=== PATIENT | female | born 1965 | race Caucasian/White ===

== ENCOUNTER 2022-09-25 13:36 | Emergency (ER) | payer OTHER ==
[2022-09-25] MEDS ORDERED: INSULIN -REGULAR HUMAN 50 UNIT/0.5 ML ML ONE (14:36)
[2022-09-25] MEDS ORDERED: NA CHLORIDE 0.9% 1,000 ML ONE (14:37)
[2022-09-25 14:52] LABS: Absolute Lymphocytes (CBC) 1.4 K/uL (0.7-4.9); Hematocrit 39.7 % (36.0-45.0); Lymphocytes % 24.4 % (15.3-44.8); MCV 85.9 fL (80-100); MPV 8.2 fL (7.6-11.3); RBC Red Blood Cell Count 4.62 M/uL (3.86-4.86)
[2022-09-25 15:04] LABS: Potassium 4.2 mEq/L (3.5-5.1)
--- NOTE | 2022-09-25 15:31 | ER ---
Nurse's Notes [facility] Name: Rosa Ortez Age: 57 yrs Sex: Female : 1965 Arrival Date: 09/25/2022 Time: 13:36 Bed 16 Private MD: Diagnosis: Hyperglycemia, unspecified;Tachycardia, unspecified Presentation: 09/25 13:53 Chief complaint: Patient states: she has been having issues controlling her blood ap3 sugars since she moved and is waiting for her diabetic monitoring system. Coronavirus screen: At this time, the client does not indicate any symptoms associated with coronavirus-19. Ebola Screen: No symptoms or risks identified at this time. Initial Sepsis Screen: Does the patient meet any 2 criteria? No. Patient's initial sepsis screen is negative. Does the patient have a suspected source of infection? No. Patient's initial sepsis screen is negative. Risk Assessment: Do you want to hurt yourself or someone else? Patient reports no desire to harm self or others. Onset of symptoms is unknown. 13:53 Method Of Arrival: Ambulatory ap3 13:53 Acuity: HERLINDA 3 ap3 Triage Assessment: 13:55 General: Appears in no apparent distress. Behavior is cooperative, anxious. Pain: ap3 Denies pain. Neuro: Level of Consciousness is awake, alert, obeys commands, Oriented to person, place, time. Cardiovascular: Patient's skin is warm and dry. Respiratory: Airway is patent Respiratory effort is even, unlabored, Respiratory pattern is regular, symmetrical. GI: Reports nausea. Historical: - Allergies: 13:55 Clindamycin; ap3 - Home Meds: 13:54 insulin [Active]; ap3 - PMHx: 13:54 Diabetes mellitus; ap3 13:55 Seizure; PTSD; ap3 - Immunization history:: Client reports receiving the 2nd dose of the Covid vaccine. - Social history:: Smoking status: Patient reports the use of cigarette tobacco products, denies chronic smoking, but will smoke occasionally. Screenin:[address] [facility] ED Fall Risk Assessment (Adult) History of falling in the last 3 months, ap3 including since admission No falls in past 3 months (0 pts). Abuse screen: Denies threats or abuse. Nutritional screening: No deficits noted. Tuberculosis screening: No symptoms or risk factors identified. Assessment: 14:38 General: Appears in no apparent distress. comfortable, Behavior is calm, cooperative, ko1 appropriate for age. Pain: Denies pain. Neuro: No deficits noted. Cardiovascular: No deficits noted. Respiratory: No deficits noted. GI: No deficits noted. : No deficits noted. EENT: No deficits noted. Derm: No deficits noted. Musculoskeletal: No deficits noted. 16:05 Reassessment: Patients blood sugar reading 31 and 43, gave 2 orange juices, 2 packages ko1 of manju crackers with 2 peanut butter packets. Will recheck. 16:20 Reassessment: Patients blood sugar is 65, will continue to monitor closely. ko1 17:00 Reassessment: blood sugar 78, notified Dr Lal. Patient is ready for DC. ko1 Vital Signs: 13:53 BP 141 / 81; Pulse 117; Resp 19; Temp 98.2; Pulse Ox 100% ; ap3 14:38 BP 111 / 88; Pulse 102; Resp 18; Pulse Ox 99% ; ko1 15:53 BP 129 / 87; Pulse 98; Resp 18; Pulse Ox 99% ; ko1 16:55 BP 126 / 77; Pulse 89; Resp 18; Pulse Ox 99% ; ko1 ED Course: 13:43 Patient arrived in ED. im 13:44 Sin Lal DO is Attending Physician. ms3 13:54 Triage completed. ap3 13:56 Arm band placed on right wrist. ap3 14:25 Sunni Jerez, RN is Primary Nurse. ko1 14:33 BMP Sent. ko1 14:33 CBC with Diff Sent. ko1 14:36 Initial lab(s) drawn, by me, sent to lab. Inserted saline lock: 20 gauge in left tm3 antecubital area, using aseptic technique. 14:38 Patient has correct armband on for positive identification. Bed in low position. Call ko1 light in reach. Side rails up X 1. Provided Education on: medications. 15:31 Derrick Wallace DO is Referral Physician. ms3 15:53 No provider procedures requiring assistance completed. ko1 16:55 IV discontinued, intact, bleeding controlled, No redness/swelling at site. Pressure ko1 dressing applied. Administered Medications: 14:36 Drug: NS 0.9% IV 1000 ml Route: IV; Rate: 1000 ml; Site: left antecubital; ko1 16:00 Follow up: Response: No adverse reaction; IV Status: Completed infusion; IV Intake: ko1 1000ml 14:36 Drug: Insulin Regular Human Sub-Q 5 units {Co-Signature: [email or web address] (Vonda Lal RN).} Route: ko1 Sub-Q; Site: abdomen; 16:57 Follow up: Response: Blood sugar is lowered ko1 Medication: 15:53 VIS not applicable for this client. ko1 Intake: 16:00 IV: 1000ml; Total: 1000ml. ko1 Outcome: 15:31 Discharge ordered by ms3 17:01 Patient left the ED. ko1 Signatures: Arsenio Thomas tm3 Jodi Anderson RN RN ap3 Sin Lal DO DO ms3 Sunni Jerez RN RN ko1 Jazmine Angeles Lauren RN ld1
--- NOTE | 2022-09-25 15:31 | EDPHYS ---
Physician Documentation [facility] Name: Rosa Ortez Age: 57 yrs Sex: Female : 1965 Arrival Date: 09/25/2022 Time: 13:36 Bed 16 Private MD: ED Physician Sin Lal HPI: 09/25 15:32 This 57 yrs old Female presents to ER via Ambulatory with complaints of Diabetes. ms3 15:32 57-year-old female with past medical history of diabetes, seizures, PTSD presents for ms3 hyperglycemia. Patient states she is an insulin-dependent diabetic and her blood glucose level was 502 days prior to arrival. Patient states today her blood sugar was 260. Patient endorses nausea and vomiting. Patient denies pain at this time. Patient states she is scared because her glucose is elevated. Historical: - Allergies: 13:55 Clindamycin; ap3 - Home Meds: 13:54 insulin [Active]; ap3 - PMHx: 13:54 Diabetes mellitus; ap3 13:55 Seizure; PTSD; ap3 - Immunization history:: Client reports receiving the 2nd dose of the Covid vaccine. - Social history:: Smoking status: Patient reports the use of cigarette tobacco products, denies chronic smoking, but will smoke occasionally. ROS: 15:32 Constitutional: Negative for fever, and chills. Neck: Negative for injury, pain, and ms3 swelling, Cardiovascular: Negative for chest pain, and palpitations. Respiratory: Negative for shortness of breath, cough, wheezing, and pleuritic chest pain, Abdomen/GI: Negative for abdominal pain, nausea, vomiting, diarrhea, and constipation, MS/Extremity: Negative for injury and deformity, Neuro: Negative for headache, weakness, numbness, tingling. 15:32 All other systems are negative. Exam: 15:32 Constitutional: This is a well developed, well nourished patient who is awake, alert, ms3 and in no acute distress. Head/Face: Normocephalic, atraumatic. Neck: Trachea midline, no cervical lymphadenopathy. Supple, full range of motion without nuchal rigidity, or vertebral point tenderness. No Meningismus. Chest/axilla: Normal chest wall appearance and motion. Nontender with no deformity. 15:32 Respiratory: Lungs have equal breath sounds bilaterally, clear to auscultation and percussion. No rales, rhonchi or wheezes noted. No increased work of breathing, no retractions or nasal flaring. Abdomen/GI: Soft, non-tender, with normal bowel sounds. No distension or tympany. No guarding or rebound. No evidence of tenderness throughout. Skin: Warm, dry with normal turgor. Normal color with no rashes, no lesions, and no evidence of cellulitis. MS/ Extremity: Pulses equal, no cyanosis. Neurovascular intact. Full, normal range of motion. 15:32 Cardiovascular: Rate: tachycardic, Rhythm: regular, Pulses: no pulse deficits are appreciated. Vital Signs: 13:53 BP 141 / 81; Pulse 117; Resp 19; Temp 98.2; Pulse Ox 100% ; ap3 14:38 BP 111 / 88; Pulse 102; Resp 18; Pulse Ox 99% ; ko1 15:53 BP 129 / 87; Pulse 98; Resp 18; Pulse Ox 99% ; ko1 16:55 BP 126 / 77; Pulse 89; Resp 18; Pulse Ox 99% ; ko1 MDM: 14:06 Patient medically screened. ms3 15:32 Differential Diagnosis Hyperglycemia versus DKA versus APOLONIA. Data reviewed: vital signs, ms3 nurses notes, lab test result(s), and as a result, I will discharge patient. I considered the following discharge prescriptions or medication management in the emergency department Medications were administered in the Emergency Department. See MAR. Care significantly affected by the following chronic conditions: Diabetes. Counseling: I had a detailed discussion with the patient and/or guardian regarding: the historical points, exam findings, and any diagnostic results supporting the discharge/admit diagnosis, lab results, the need for outpatient follow up, to return to the emergency department if symptoms worsen or persist or if there are any questions or concerns that arise at home. Special discussion: I discussed with the patient/guardian in detail that at this point there is no indication for admission to the hospital. It is understood, however, that if the symptoms persist or worsen the patient needs to return immediately for re-evaluation. ED course: Labs with patient. Patient feels more comfortable with her blood glucose at this time. [facility]. Patient understands and agrees with plan. All questions were answered. Return precautions discussed include worsening symptoms, vomiting, abdominal pain, hyperglycemia, or any other concerns. 09/25 14:06 Order name: Glucose, Ancillary Testing; Complete Time: 14:33 EDMS 09/25 14:07 Order name: CBC with Diff; Complete Time: 15:18 ms3 09/25 14:07 Order name: BMP; Complete Time: 15:18 ms3 09/25 15:59 Order name: Glucose, Ancillary Testing; Complete Time: 16:05 EDMS 09/25 16:17 Order name: Glucose, Ancillary Testing; Complete Time: 16:23 EDMS 09/25 16:34 Order name: Glucose, Ancillary Testing; Complete Time: 16:39 EDMS 09/25 16:59 Order name: Glucose, Ancillary Testing EDMS Administered Medications: 14:36 Drug: NS 0.9% IV 1000 ml Route: IV; Rate: 1000 ml; Site: left antecubital; ko1 16:00 Follow up: Response: No adverse reaction; IV Status: Completed infusion; IV Intake: ko1 1000ml 14:36 Drug: Insulin Regular Human Sub-Q 5 units {Co-Signature: [email or web address] (Vonda Lal RN).} Route: ko1 Sub-Q; Site: abdomen; 16:57 Follow up: Response: Blood sugar is lowered ko1 Disposition Summary: 09/25/22 15:31 Discharge Ordered Location: Home ms3 Condition: Stable ms3 Diagnosis - Hyperglycemia, unspecified ms3 - Tachycardia, unspecified ms3 Followup: ms3 - With: Derrick Wallace DO - When: 2 - 3 days - Reason: Recheck today's complaints Discharge Instructions: - Discharge Summary Sheet ms3 - Hyperglycemia ms3 Forms: - Medication Reconciliation Form ms3 - Thank You Letter ms3 - Antibiotic Education ms3 - Prescription Opioid Use ms3 - Patient Portal Instructions.htm ms3 Signatures: Dispatcher [employer] EDJodi Boogie RN RN ap3 Sin Lal DO DO ms3 Sunni Jerez RN RN ko1 Sims, Lauren RN ld1
[2022-09-25 18:51] VITALS: TEMP 98.2
[2022-09-25 18:53] VITALS: O2SAT 99
[2022-09-25 18:57] VITALS: BP 126/77
== END 2022-09-25 17:01 | disposition home or self-care (01) ==
LOC: ER 13:36
DX: E11.65 Type 2 diabetes mellitus with hyperglycemia (principal); R00.0 Tachycardia, unspecified; F17.210 Nicotine dependence, cigarettes, uncomplicated; Z79.4 Long term (current) use of insulin; Z88.3 Allergy status to other anti-infective agents
CPT/HCPCS: 85025; 80048; 36415; 82947 ×5; 96360; 96372; 99284; J1815; J7030

== ENCOUNTER 2024-05-05 11:43 | Emergency (ER) | payer OTHER ==
[2024-05-05] MEDS ORDERED: D50W 25 GM/50 ML SYRINGE IV ONE (12:06)
[2024-05-05] MEDS ORDERED: GLUCAGON 1 MG/VIAL ONE (12:34)
[2024-05-05] MEDS ORDERED: HYDROCORTISONE SUC 100 MG INJ ONE (12:34)
[2024-05-05 12:36] LABS: Sqamous Epithelial <5 /HPF (None Seen); Urine Bacteria <20 /HPF (<20); Urine Bilirubin NEGATIVE (Negative); Urine Blood Negative (Negative); Urine Clarity Extremely Turbid (Clear); Urine Color Light-Yellow (Yellow); Urine Culture Reflex Order NOT NEEDED; Urine Glucose TRACE (Negative); Urine Ketones NEGATIVE (Negative); Urine Microscopic Reflex YN ORDER UMIC; Urine Nitrite 2+ (Negative); Urine Protein NEGATIVE (Negative); Urine RBC <5 /HPF (None Seen); Urine Urobilinogen Normal (Normal); Urine WBC <5 /HPF (<5); Urine pH 7.5 (5.0-7.0)
[2024-05-05] MEDS ORDERED: HYDROCODONE/APAP 5/325 MG TAB ONE (12:46)
[2024-05-05] MEDS ORDERED: ONDANSETRON 4 MG/2 ML VIAL ONE (12:46)
[2024-05-05 12:47] LABS: Anion Gap 6.9 mEq/L (5.0-15.0); Potassium 3.9 mEq/L (3.5-5.1)
[2024-05-05 12:48] LABS: Absolute Monocytes 0.3 K/uL (0.1-1.3); Absolute Neutrophil 6.7 K/uL (1.8-8.0); Basophils % 0.5 % (0-1.3); Eosinophils % 0.2 % (0-4.4); Hematocrit 38.6 % (36.0-45.0); Hemoglobin 13.1 g/dL (12.0-15.0); Lymphocytes % 12.4 % (15.3-44.8); MCH 30.1 pg (27.0-35.0); MCV 88.6 fL (80-100); MPV 8.5 fL (7.6-11.3); Monocytes % 3.6 % (3.3-12.3); Neutrophils % 83.3 % (41.7-73.7); Platelets 283 thou/uL (152-406); RBC Red Blood Cell Count 4.35 M/uL (3.86-4.86); Red Cell Distribution Width 13.9 % (12.1-15.2)
--- NOTE | 2024-05-05 13:44 | RAD REPORT ---
EXAM: CT brain without contrast HISTORY: AMS COMPARISON: None TECHNIQUE: Multiple contiguous axial images were obtained and a CT of the brain without contrast. Sag ittal and coronal reformats were performed. One or more of the following dose reduction techniques were used: Automated exposure control, adjust ment of the mA and/or kV according to patient size, and/or iterative reconstruction. FINDINGS: No evidence of hydrocephalus, intracranial hemorrhage, or extra-axial fluid collection. The brain is normal in morphology. No evidence of midline shift or areas of brain edema. The calvarium is intact. The visualized paranasal sinuses and mastoid air cells are essentially clear . IMPRESSION: No evidence of acute intracranial abnormality.
[2024-05-05] MEDS ORDERED: CIPROFLOXACIN HCL 500 MG TAB ONE (15:47)
--- NOTE | 2024-05-05 15:47 | ER ---
Nurse's Notes [facility] Name: Rosa Ortez Age: 58 yrs Sex: Female : 1965 Arrival Date: 05/05/2024 Time: 11:43 Bed 17 Private MD: Diagnosis: Hypoglycemia, unspecified;UTI/ Urinary tract infection, site not specified Presentation: 05/05 11:58 Chief complaint: Spouse and/or significant other states: she was at his house and he iw went to the bathroom and when he came back she was not acting right, she has a hx of seizures but he did not see seizure activity, she was screaming out like she was in pain, she was not responding to me at the house. Coronavirus screen: At this time, the client does not indicate any symptoms associated with coronavirus-19. Ebola Screen: No symptoms or risks identified at this time. Initial Sepsis Screen: Does the patient meet any 2 criteria? No. Patient's initial sepsis screen is negative. Does the patient have a suspected source of infection? No. Patient's initial sepsis screen is negative. Risk Assessment: Do you want to hurt yourself or someone else? Patient reports no desire to harm self or others. Onset of symptoms was May 05, 2024. 11:58 Method Of Arrival: Wheelchair iw 11:58 Acuity: HERLINDA 2 iw Historical: - Allergies: 11:58 Clindamycin; iw - PMHx: 11:58 diabetes mellitus; PTSD; Seizure; iw - Immunization history:: Adult Immunizations up to date. - Infectious Disease History:: Denies. - Family history:: not pertinent. - Hospitalizations: : No recent hospitalization is reported. - Social history:: Smoking status: Patient/guardian denies using tobacco. Screenin:09 [facility] ED Fall Risk Assessment (Adult) History of falling in the last 3 months, hb including since admission No falls in past 3 months (0 pts) Confusion or Disorientation No (0 pts) Intoxicated or Sedated No (0 pts) Impaired Gait No (0 pts) Mobility Assist Device Used No (0 pt) Altered Elimination No (0 pt) Score/Fall Risk Level 0 - 2 = Low Risk Oriented to surroundings, Maintained a safe environment, Educated pt \T\ family on fall prevention, incl call for assistance when getting out of bed. Abuse screen: Denies threats or abuse. Denies injuries from another. Nutritional screening: No deficits noted. Tuberculosis screening: No symptoms or risk factors identified. Assessment: 13:09 General: Appears in no apparent distress. Behavior is calm, cooperative. Pain: Pain hb currently is 7 out of 10 on a pain scale. Neuro: Level of Consciousness is awake, alert, obeys commands, Oriented to person, place, time, situation, Reports headache. Cardiovascular: Patient's skin is warm and dry. Respiratory: Respiratory effort is even, unlabored, Respiratory pattern is regular, symmetrical. GI: Reports nausea. : No signs and/or symptoms were reported regarding the genitourinary system. EENT: No signs and/or symptoms were reported regarding the EENT system. Derm: Skin is pink, warm \T\ dry. Musculoskeletal: No signs and/or symptoms reported regarding the musculoskeletal system. 13:57 Reassessment: Patient appears in no apparent distress at this time. Patient and/or hb family updated on plan of care and expected duration. Pain level reassessed. Patient is alert, oriented x 3, equal unlabored respirations, skin warm/dry/pink. Vital Signs: 11:58 BP 132 / 88; Pulse 93; Resp 16; Temp 97.6; Pulse Ox 100% on R/A; iw 13:08 BP 141 / 91; Pulse 78; Resp 15; Pulse Ox 99% on R/A; hb ED Course: 11:46 Patient arrived in ED. al6 12:00 Joshua Louis MD is Attending Physician. rn 12:01 Triage completed. iw 12:01 Arm band placed on. iw 12:13 Inserted saline lock: 20 gauge in right antecubital area, using aseptic technique. ld1 Blood collected. Flushed with 10 mL NS. 12:43 Debbie Villarreal, RN is Primary Nurse. hb 13:09 Patient has correct armband on for positive identification. Bed in low position. Call hb light in reach. Provided Education on: tests, result times, medications . 13:32 CT Head Brain wo Cont In Process Unspecified. EDMS Administered Medications: 12:11 Drug: D50W IVP 50 ml IVP once; (1 amp) Route: IVP; Site: right antecubital; ld1 13:08 Follow up: Response: No adverse reaction hb 12:43 Drug: Solu-CORTEF IVP 50 mg IVP once Route: IVP; Site: right antecubital; hb 13:08 Follow up: Response: No adverse reaction hb 12:44 Drug: Glucagon IVP 1 mg IVP once Route: IVP; Site: right antecubital; hb 13:08 Follow up: Response: No adverse reaction hb 13:05 Drug: Ondansetron IVP 4 mg IVP once; over 2 minutes Route: IVP; Site: right antecubital;hb 13:57 Follow up: Response: No adverse reaction; Nausea is decreased hb 13:06 Drug: HYDROcodone-acetaminophen PO 5 mg-325 mg 1 tabs PO once Route: PO; hb 13:57 Follow up: Response: No adverse reaction; Pain is decreased hb Point of Care Testing: Blood Glucose: 12:00 Blood Glucose: 29 mg/dL; iw 12:44 Blood Glucose: 192 mg/dL; hb 14:06 Blood Glucose: 188 mg/dL; hb 15:46 Blood Glucose: 166 mg/dL; hb Ranges: Outcome: 15:46 Discharge ordered by MD. garcia 18:26 Patient left the ED. hb Signatures: Dispatcher [employer] Marcie Palencia RN RN iw Joshua Louis MD MD rn Baxter, Heather, RN RN Vonda Lal RN RN ldLinda Riggs
--- NOTE | 2024-05-05 15:47 | EDPHYS ---
Physician Documentation [facility] Name: Rosa Ortez Age: 58 yrs Sex: Female : 1965 Arrival Date: 05/05/2024 Time: 11:43 Bed 17 Private MD: ED Physician Joshua Louis HPI: 05/05 13:06 This 58 yrs old Female presents to ER via Wheelchair with complaints of AMS. rn 13:06 Onset: The symptoms/episode began/occurred at an unknown time. Possible causes: low rn blood sugar, seizure. Current symptoms: In the emergency department the patient's symptoms are unchanged from the initial presentation. The patient has not experienced similar symptoms in the past. Significant other reports patient is altered, acting funny, has a history of seizures but did not witness seizure today. He reports earlier had low glucose and thinks still took her diabetes medication. No trauma noted. Patient is awake and denies any focal pain or injury. There was no syncopal episode or seizure reported.. Historical: - Allergies: 11:58 Clindamycin; iw - PMHx: 11:58 diabetes mellitus; PTSD; Seizure; iw - Immunization history:: Adult Immunizations up to date. - Infectious Disease History:: Denies. - Family history:: not pertinent. - Hospitalizations: : No recent hospitalization is reported. - Social history:: Smoking status: Patient/guardian denies using tobacco. ROS: 13:07 Constitutional: Negative for fever, chills, and weight loss, Cardiovascular: Negative rn for chest pain, palpitations, and edema, Respiratory: Negative for shortness of breath, cough, wheezing, and pleuritic chest pain, Abdomen/GI: Negative for abdominal pain, nausea, vomiting, diarrhea, and constipation, Back: Negative for injury and pain, MS/Extremity: Negative for injury and deformity, Skin: Negative for injury, rash, and discoloration, Neuro: Negative for headache, weakness, numbness, tingling, and seizure, Exam: 13:07 Constitutional: This is a well developed, well nourished patient who is awake, answers rn some questions, slow to respond, follows commands Head/Face: Normocephalic, atraumatic. Eyes: Pupils equal round and reactive to light, extra-ocular motions intact. ENT: Dry mucous membranes, no tongue laceration Neck: No C-spine tenderness or nuchal rigidity Cardiovascular: Regular rate and rhythm. No pulse deficits. Respiratory: No increased work of breathing, no retractions or nasal flaring. Abdomen/GI: Soft, non-tender MS/ Extremity: Pulses equal, no cyanosis. Neuro: Awake and somnolent, moves all 4 extremities, follows commands 14:34 ECG was reviewed by the Attending Physician. rn Vital Signs: 11:58 BP 132 / 88; Pulse 93; Resp 16; Temp 97.6; Pulse Ox 100% on R/A; iw 13:08 BP 141 / 91; Pulse 78; Resp 15; Pulse Ox 99% on R/A; hb MDM: 12:01 Medical Screening Exam initiated rn 15:45 Differential Diagnosis: hypoglycemia, pneumonia, seizure, UTI, volume depletion. Data rn reviewed: vital signs, nurses notes, lab test result(s), EKG, radiologic studies, CT scan, and as a result, I will discharge patient. Counseling: I had a detailed discussion with the patient and/or guardian regarding the historical points, exam findings, and any diagnostic results supporting the discharge/admit diagnosis, lab results, radiology results, the need for outpatient follow up, to return to the emergency department if symptoms worsen or persist or if there are any questions or concerns that arise at home. Response to treatment: the patient's symptoms have markedly improved after treatment, the patient is now symptom free, the patient developed rash, and as a result, I will discharge patient. Special discussion: I discussed with the patient/guardian in detail that at this point there is no indication for admission to the hospital. It is understood, however, that if the symptoms persist or worsen the patient needs to return immediately for re-evaluation. ED course: Patient back to baseline, tolerating p.o., eating Brandt[employer]. No seizure activity here. Most likely all secondary to hypoglycemic episode after patient took her medication after already low blood sugar.. 05/05 12:10 Order name: CBC with Diff; Complete Time: 13:40 rn 05/05 12:10 Order name: Basic Metabolic Panel; Complete Time: 13:40 rn 05/05 12:10 Order name: Urinalysis w/ reflexes; Complete Time: 13:40 rn 05/05 12:51 Order name: Glucose, Ancillary Testing; Complete Time: 13:40 EDMS 05/05 12:53 Order name: Glucose, Ancillary Testing; Complete Time: 13:40 EDMS 05/05 12:55 Order name: Glucose, Ancillary Testing EDMD 05/05 14:18 Order name: Glucose, Ancillary Testing; Complete Time: 15:29 EDMS 05/05 15:56 Order name: Glucose, Ancillary Testing EDMD 05/05 13:07 Order name: CT Head Brain wo Cont; Complete Time: 14:07 rn 05/05 12:10 Order name: IV Start; Complete Time: 12:11 rn 05/05 12:10 Order name: Cardiac monitoring; Complete Time: 12:33 rn 05/05 12:10 Order name: O2 Sat Monitoring; Complete Time: 12:11 rn 05/05 12:10 Order name: EKG - Nurse/Tech; Complete Time: 13:06 rn EC:34 Rate is 102 beats/min. Rhythm is regular. QRS [place] is Normal. OK interval is normal. No rn Q waves. T waves are Normal. No ST changes noted. Clinical impression: Sinus tachycardia. Interpreted by me. Reviewed by me. Administered Medications: 12:11 Drug: D50W IVP 50 ml IVP once; (1 amp) Route: IVP; Site: right antecubital; ld1 13:08 Follow up: Response: No adverse reaction hb 12:43 Drug: Solu-CORTEF IVP 50 mg IVP once Route: IVP; Site: right antecubital; hb 13:08 Follow up: Response: No adverse reaction hb 12:44 Drug: Glucagon IVP 1 mg IVP once Route: IVP; Site: right antecubital; hb 13:08 Follow up: Response: No adverse reaction hb 13:05 Drug: Ondansetron IVP 4 mg IVP once; over 2 minutes Route: IVP; Site: right antecubital;hb 13:57 Follow up: Response: No adverse reaction; Nausea is decreased hb 13:06 Drug: HYDROcodone-acetaminophen PO 5 mg-325 mg 1 tabs PO once Route: PO; hb 13:57 Follow up: Response: No adverse reaction; Pain is decreased hb Point of Care Testing: Blood Glucose: 12:00 Blood Glucose: 29 mg/dL; iw 12:44 Blood Glucose: 192 mg/dL; hb 14:06 Blood Glucose: 188 mg/dL; hb 15:46 Blood Glucose: 166 mg/dL; hb Ranges: Critical Glucose Levels:Adult <50 mg/dl or >400 mg/dl <40 mg/dl or >180 mg/dl Disposition Summary: 05/05/24 15:46 Discharge Ordered Notes: Location: Home rn Problem: new rn Symptoms: have improved rn Condition: Stable rn Diagnosis - Hypoglycemia, unspecified rn - UTI/ Urinary tract infection, site not specified rn Followup: rn - With: Private Physician - When: As needed - Reason: Recheck today's complaints, Re-evaluation by your physician Discharge Instructions: - Discharge Summary Sheet rn - Hypoglycemia rn - Urinary Tract Infection, Adult rn - Blood Glucose Monitoring, Adult rn Forms: - Medication Reconciliation Form rn - Antibiotic internal investigator - Prescription Opioid Use rn - Patient Portal Instructions rn - Leadership Thank You Letter rn Prescriptions: - Cipro 500 mg Oral Tablet - take 1 tablet ORAL route every 12 hours for 7 days; 14 tablet; Refills: 0, rn Product Selection Permitted Signatures: Dispatcher [employer] Marcie Palencia RN Joshua Lundy MD MD rn Baxter, Heather, RN RN hb Sims, Lauren RN RN ld1
[2024-05-05 20:33] VITALS: TEMP 97.6
[2024-05-05 20:34] VITALS: BP 141/91; O2SAT 99
== END 2024-05-05 18:26 | disposition home or self-care (01) ==
LOC: ER 11:43
DX: E11.649 Type 2 diabetes mellitus with hypoglycemia without coma (principal); N39.0 Urinary tract infection, site not specified
CPT/HCPCS: 85025; 81001; 80048; 36415; 82947 ×4; 70450; J1610; J1720; J2405; 93005